=== PATIENT | female | born 1990 | race Hispanic/Latino ===

== ENCOUNTER 2021-01-24 08:52 | Emergency (ER) | payer SELFPAY ==
[2021-01-24] MEDS ORDERED: Ibuprofen 200 MG TAB ONE (09:35)
== END 2021-01-24 10:10 | disposition home or self-care (01) ==
LOC: CSHERS 08:52
DX: R05.9 Cough, unspecified (principal)
CPT/HCPCS: 71045; 93005

== ENCOUNTER 2021-02-08 08:02 | Emergency (ER) | payer SELFPAY ==
[2021-02-08] MEDS ORDERED: Ibuprofen 200 MG TAB ONE (09:25)
[2021-02-08 15:21] LABS: SARS-CoV-2 PCR by NAA DETECTED (NotDetected)
== END 2021-02-08 09:35 | disposition home or self-care (01) ==
LOC: CSHERS 08:02
DX: U07.1 COVID-19 (principal)
CPT/HCPCS: 93005; U0003; U0005